=== PATIENT | female | born 1955 | race Caucasian/White ===

== ENCOUNTER 2017-03-29 10:40 | Inpatient (IN) | payer OTHER ==
[~2017-03-29] VITALS: Ht 160 cm; Wt 100.1 kg
[2017-03-29 11:31] LABS: HEMATOCRIT 43.1 % (36.0-46.0); MCH 28.6 PG (29.0-34.0); MCHC 33.4 G/DL (30.0-36.0); MCV 85.7 FL (83-99); MEAN PLAT.VOLUME 10.3 uM^3 (9.5-12.4); PLATELET COUNT 312 K/uL (156-360); RBC DIS.WIDTH-CV 13.6 % (11.8-14.6); RBC DIS.WIDTH-SD 42.6 % (39-53); RED BLOOD COUNT 5.03 M/uL (3.80-5.20); WHITE BLOOD COUNT 17.5 K/uL (4.1-10.2)
[2017-03-29 11:45] LABS: CHLORIDE 101 mEq/L (99-109); POTASSIUM 4.4 mEq/L (3.7-5.4); SODIUM 137 mEq/L (136-147)
[2017-03-29 11:47] LABS: GLUCOSE 166 mg/dL (70-99)
[2017-03-29 11:48] LABS: ANION GAP 14 MEQ/L (2-14)
[2017-03-29 11:51] LABS: GFR ESTIMATE (CALCULATED) > 59 mL/min/
[2017-03-29 11:52] LABS: UREA NITROGEN (BUN) 13 mg/dL (9-23)
[2017-03-29 11:55] LABS: TROP-I INTERPRETATION NEGATIVE; TROPONIN-I < 0.01 ng/mL (0.0-0.30)
[2017-03-29] MEDS ORDERED: POTASSIUM CHLO10 ME4 PO (13:16)
[2017-03-29] MEDS ORDERED: VENTOLIN HFA18 GM IH (13:17)
[2017-03-29] MEDS ORDERED: OMEPRAZOLE20 MG PO (13:17)
[2017-03-29] MEDS ORDERED: MONTELUKAST SOD10 MG PO (13:18)
[2017-03-29] MEDS ORDERED: TORSEMIDE20 MG PO (13:20)
[2017-03-29] MEDS ORDERED: LOSARTAN-HCTZ1 EAC2 PO (13:20)
[2017-03-29] MEDS ORDERED: ADVAIR 500/501 DISK IH (13:20)
[2017-03-29] MEDS ORDERED: PREDNISONE5 MG PO (13:21)
[2017-03-29] MEDS ORDERED: NAPROXEN500 MG PO (13:21)
[2017-03-29] MEDS ORDERED: MULTI VITAMIN1 EACH PO (13:22)
[2017-03-29] MEDS ORDERED: NASACORT10.8 ML BOTH NARES (13:22)
[2017-03-29] MEDS ORDERED: VITAMIN C1000 MG PO (13:26)
[2017-03-29] MEDS ORDERED: POTASSIUM-9999 MG PO (13:26)
[2017-03-29] MEDS ORDERED: CALCIUM600 M1 PO (13:27)
[2017-03-29] MEDS ORDERED: MAGNESIUM OXID500 MG PO (13:27)
[2017-03-29 15:10] VITALS: BP 140/67
[2017-03-29 18:30] VITALS: BP 129/75
[2017-03-29 18:40] LABS: BASE EXCESS -2.3 mEq/L (-3 to +3); BICARBONATE 21.4 mEq/L (22-26); CARBOXY HGB 1.3 % (0-5); METHEMOGLOBIN 1.2 % (0-1.5); PCO2 33 mm Hg (35-45); PO2 73 mm Hg (80-100); pH 7.42 (7.35-7.45)
[2017-03-29 18:41] LABS: COMMENTS - BLOOD GASES A+C+; DEVICE NC; O2 FLOW 2 L/MIN; SITE RR
[2017-03-29 19:55] LABS: TROP-I INTERPRETATION NEGATIVE; TROPONIN-I < 0.01 ng/mL (0.0-0.30)
[2017-03-29 21:58] VITALS: BP 138/74
[2017-03-29 23:09] VITALS: BP 136/64; BP 136/674
[2017-03-30 03:56] VITALS: BP 134/79
[2017-03-30 06:57] LABS: HEMATOCRIT 40.1 % (36.0-46.0); MCH 29.4 PG (29.0-34.0); MCHC 33.9 G/DL (30.0-36.0); MCV 86.8 FL (83-99); MEAN PLAT.VOLUME 10.8 uM^3 (9.5-12.4); PLATELET COUNT 326 K/uL (156-360); RBC DIS.WIDTH-SD 44.6 % (39-53); RED BLOOD COUNT 4.62 M/uL (3.80-5.20); WHITE BLOOD COUNT 19.4 K/uL (4.1-10.2)
[2017-03-30 07:16] LABS: ALKALINE PHOSPHATASE 53 IU/L (3-129); ANION GAP 14 MEQ/L (2-14); CHLORIDE 98 MEQ/L (99-109); GFR ESTIMATE (CALCULATED) > 59 mL/min/; POTASSIUM 4.2 MEQ/L (3.7-5.4); SAMPLE HEMOLYSIS CHECK 0; SAMPLE ICTERIC CHECK 0; SAMPLE LIPEMIA CHECK 0; SODIUM 133 MEQ/L (136-147); TOTAL BILIRUBIN 0.5 MG/DL (0.0-1.0); UREA NITROGEN (BUN) 17 mg/dL (9-23)
[2017-03-30 07:17] LABS: GLUCOSE 335 mg/dL (70-99)
[2017-03-30 07:55] VITALS: BP 117/73
[2017-03-30 11:24] VITALS: BP 136/71
[2017-03-30 15:19] VITALS: BP 133/75
[2017-03-30 19:14] VITALS: BP 136/74
[2017-03-31] VITALS (8 sets, daily range): BP systolic 103–167; BP diastolic 63–83
[2017-03-31 07:01] LABS: HEMATOCRIT 38.9 % (36.0-46.0); MCH 29.3 PG (29.0-34.0); MCHC 33.9 G/DL (30.0-36.0); MCV 86.3 FL (83-99); MEAN PLAT.VOLUME 10.7 uM^3 (9.5-12.4); PLATELET COUNT 378 K/uL (156-360); RBC DIS.WIDTH-CV 13.9 % (11.8-14.6); RBC DIS.WIDTH-SD 43.8 % (39-53); RED BLOOD COUNT 4.51 M/uL (3.80-5.20); WHITE BLOOD COUNT 28.2 K/uL (4.1-10.2)
[2017-03-31 07:25] LABS: ALKALINE PHOSPHATASE 55 IU/L (3-129); ANION GAP 12 MEQ/L (2-14); CHLORIDE 102 MEQ/L (99-109); GFR ESTIMATE (CALCULATED) > 59 mL/min/; GLUCOSE 338 mg/dL (70-99); SAMPLE HEMOLYSIS CHECK 0; SAMPLE ICTERIC CHECK 0; SAMPLE LIPEMIA CHECK 0; SODIUM 138 MEQ/L (136-147)
[2017-03-31 07:28] LABS: TOTAL BILIRUBIN 0.3 MG/DL (0.0-1.0); UREA NITROGEN (BUN) 27 mg/dL (9-23)
[2017-03-31 07:29] LABS: BASOPHIL COUNT 0.1 K/uL (0-0.1); EOSINOPHIL (%) 0 % (0-5); IMMATURE GRANULOCYTE (%) 4.1 % (0.0-0.7); IMMATURE GRANULOCYTE COUNT 1.2 K/uL; INSTRUMENT ABS NEUTROPHIL CT 25.6 K/uL; LYMPHOCYTE COUNT 1.2 K/uL (1.0-2.8); MONOCYTE (%) 3.3 % (3-12); NEUTROPHIL (%) 88.3 % (45-76); NEUTROPHIL COUNT 25.6 K/uL (1.8-6.4)
[2017-03-31 07:32] LABS: TROP-I INTERPRETATION NEGATIVE; TROPONIN-I < 0.01 ng/mL (0.0-0.30)
[2017-04-01 04:02] VITALS: BP 138/74
[2017-04-01 07:10] VITALS: BP 141/79
[2017-04-01 07:18] LABS: EOSINOPHIL (%) 0 % (0-5); HEMATOCRIT 38.8 % (36.0-46.0); IMMATURE GRANULOCYTE (%) 3.9 % (0.0-0.7); IMMATURE GRANULOCYTE COUNT 0.7 K/uL; INSTRUMENT ABS NEUTROPHIL CT 16.1 K/uL; LYMPHOCYTE COUNT 1.4 K/uL (1.0-2.8); MCH 29.2 PG (29.0-34.0); MCHC 33.5 G/DL (30.0-36.0); MCV 87.2 FL (83-99); MEAN PLAT.VOLUME 10.5 uM^3 (9.5-12.4); MONOCYTE (%) 3.8 % (3-12); MONOCYTE COUNT 0.7 K/uL (0-0.8); NEUTROPHIL (%) 84.9 % (45-76); NEUTROPHIL COUNT 16.1 K/uL (1.8-6.4); PLATELET COUNT 360 K/uL (156-360); RBC DIS.WIDTH-CV 14.1 % (11.8-14.6); RBC DIS.WIDTH-SD 45.2 % (39-53); RED BLOOD COUNT 4.45 M/uL (3.80-5.20); WHITE BLOOD COUNT 18.9 K/uL (4.1-10.2)
[2017-04-01 07:43] LABS: ANION GAP 8 MEQ/L (2-14); CHLORIDE 107 MEQ/L (99-109); GFR ESTIMATE (CALCULATED) > 59 mL/min/; GLUCOSE 260 mg/dL (70-99); POTASSIUM 4.3 MEQ/L (3.7-5.4); SAMPLE HEMOLYSIS CHECK 0; SAMPLE ICTERIC CHECK 0; SAMPLE LIPEMIA CHECK 0; SODIUM 140 MEQ/L (136-147); UREA NITROGEN (BUN) 30 mg/dL (9-23)
[2017-04-01 12:10] VITALS: BP 147/72
[2017-04-01 15:47] VITALS: BP 151/83
[2017-04-01 19:06] VITALS: BP 144/78
[2017-04-02 00:26] LABS: POINT-OF-CARE METER ID UU14208750
[2017-04-02 00:41] VITALS: BP 132/88
[2017-04-02 03:45] VITALS: BP 140/80
[2017-04-02 05:42] LABS: POINT-OF-CARE METER ID UU14208750
[2017-04-02 07:16] LABS: HEMATOCRIT 40.1 % (36.0-46.0); MCH 29.3 PG (29.0-34.0); MCHC 33.7 G/DL (30.0-36.0); MCV 87.2 FL (83-99); MEAN PLAT.VOLUME 10.2 uM^3 (9.5-12.4); PLATELET COUNT 434 K/uL (156-360); RBC DIS.WIDTH-CV 14.2 % (11.8-14.6); RBC DIS.WIDTH-SD 45.3 % (39-53); WHITE BLOOD COUNT 23.7 K/uL (4.1-10.2)
[2017-04-02 07:45] LABS: ANION GAP 10 MEQ/L (2-14); CHLORIDE 103 MEQ/L (99-109); GFR ESTIMATE (CALCULATED) > 59 mL/min/; GLUCOSE 226 mg/dL (70-99); SAMPLE HEMOLYSIS CHECK 0; SAMPLE ICTERIC CHECK 0; SAMPLE LIPEMIA CHECK 0; SODIUM 138 MEQ/L (136-147); UREA NITROGEN (BUN) 30 mg/dL (9-23)
[2017-04-02 07:47] LABS: ATYPICAL LYMPHOCYTE 0.9 %; BAND NEUTROPHILS 2.6 % (0-8.0); EOSINOPHIL ABS CT 0; INSTRUMENT ABS NEUTROPHIL CT 17.2 K/uL; MYELOCYTES 1.7 %; SEG.NEUTROPHILS 81.7 % (46.0-76.0)
[2017-04-02 09:04] VITALS: BP 137/89
[2017-04-02 16:14] VITALS: BP 141/92
[2017-04-02 19:38] VITALS: BP 139/83
[2017-04-02 23:48] VITALS: BP 120/56
[2017-04-03 03:43] VITALS: BP 131/78
[2017-04-03 07:03] LABS: HEMATOCRIT 38.1 % (36.0-46.0); MCH 29.4 PG (29.0-34.0); MCHC 34.1 G/DL (30.0-36.0); MCV 86.2 FL (83-99); MEAN PLAT.VOLUME 9.9 uM^3 (9.5-12.4); PLATELET COUNT 353 K/uL (156-360); RBC DIS.WIDTH-CV 14.1 % (11.8-14.6); RBC DIS.WIDTH-SD 44.4 % (39-53); RED BLOOD COUNT 4.42 M/uL (3.80-5.20); WHITE BLOOD COUNT 14.8 K/uL (4.1-10.2)
[2017-04-03 07:26] VITALS: BP 139/87
[2017-04-03 07:28] LABS: ANION GAP 7 MEQ/L (2-14); CHLORIDE 108 MEQ/L (99-109); GFR ESTIMATE (CALCULATED) > 59 mL/min/; GLUCOSE 126 mg/dL (70-99); POTASSIUM 4.2 MEQ/L (3.7-5.4); SAMPLE HEMOLYSIS CHECK 0; SAMPLE ICTERIC CHECK 0; SAMPLE LIPEMIA CHECK 0; SODIUM 140 MEQ/L (136-147); UREA NITROGEN (BUN) 27 mg/dL (9-23)
[2017-04-03 07:44] LABS: ABS NEUTROPHIL COUNT 9.9; BASOPHILS 0.9 %; EOSINOPHIL ABS CT 0; INSTRUMENT ABS NEUTROPHIL CT 8.8 K/uL; LYMPHOCYTES 24.1 % (15.0-45.0); MYELOCYTES 1.8 %; PLAT.SUFFICIENCY ADEQUATE; SMUDGE CELLS 11.6
[2017-04-03] MEDS ORDERED: DOCUSATE SODIU100 MG PO (08:22)
[2017-04-03] MEDS ORDERED: LEVAQUIN500 MG PO (08:24)
[2017-04-03] MEDS ORDERED: SPIRIVA RESPIMAT4 GM IH (08:24)
[2017-04-03] MEDS ORDERED: DUONEB 2.5-0.5 M3 ML AEROSOL ×2 (08:24)
[2017-04-03] MEDS ORDERED: MUCINEX600 MG PO (08:24)
[2017-04-03] MEDS ORDERED: ALPRAZOLAM0.5 MG PO (08:24)
[2017-04-03] MEDS ORDERED: PREDNISONE10 MG PO (08:32)
[2017-04-03] MEDS ORDERED: ADVAIR HFA120 INHALA IH (08:35)
== END 2017-04-03 11:12 | disposition home or self-care (01) | DRG 190 ==
LOC: EME 10:40 → 2EAST 13:20 → EDOF 13:20 → 2EAST 14:25
PROVIDERS: Emergency Medicine; Family Medicine; Internal Medicine; Internal Medicine Cardiovascular Disease
DX: J44.0 Chronic obstructive pulmonary disease with (acute) lower respiratory infection (principal); J18.9 Pneumonia, unspecified organism; J44.1 Chronic obstructive pulmonary disease with (acute) exacerbation; I27.2 Other secondary pulmonary hypertension; I10 Essential (primary) hypertension; J32.9 Chronic sinusitis, unspecified; R09.02 Hypoxemia; K21.9 Gastro-esophageal reflux disease without esophagitis; M19.90 Unspecified osteoarthritis, unspecified site; I49.3 Ventricular premature depolarization; K76.0 Fatty (change of) liver, not elsewhere classified; J98.11 Atelectasis; Z82.49 Family history of ischemic heart disease and other diseases of the circulatory system; Z68.39 Body mass index [BMI] 39.0-39.9, adult
CPT/HCPCS: 36600; 70486; 71020; 71275; 76000; 80048; 80053; 82803; 82948; 83605; 83880; 84484; 85025; 85027; 87040; 87070; 87116; 87205; 87206; 88108; 93005; 93306; 94010; 94640; 94640 76; 94760; 94799; 99202; 99281; 99285; J0456; J0692; J1100; J1650; J1815; J2060; J2250; J2270; J2310; J2930; J3010; J7050; J7512

== ENCOUNTER 2017-04-14 15:59 | Inpatient (IN) | payer OTHER ==
[~2017-04-14] VITALS: Ht 160 cm; Wt 101.6 kg
[~2017-04-14 15:59] MED LIST: ADVAIR 500/501 DISK IH; ADVAIR HFA120 INHALA IH; ALPRAZOLAM0.5 MG PO; CALCIUM600 M1 PO; DOCUSATE SODIU100 MG PO; DUONEB 2.5-0.5 M3 ML AEROSOL; LEVAQUIN500 MG PO; LOSARTAN-HCTZ1 EAC2 PO; MAGNESIUM OXID500 MG PO; MONTELUKAST SOD10 MG PO; MUCINEX600 MG PO; MULTI VITAMIN1 EACH PO; NAPROXEN500 MG PO; NASACORT10.8 ML BOTH NARES; OMEPRAZOLE20 MG PO; POTASSIUM CHLO10 ME4 PO; POTASSIUM-9999 MG PO; PREDNISONE10 MG PO; PREDNISONE5 MG PO; SPIRIVA RESPIMAT4 GM IH; TORSEMIDE20 MG PO; VENTOLIN HFA18 GM IH; VITAMIN C1000 MG PO
[2017-04-14 16:51] LABS: HEMATOCRIT 38.4 % (36.0-46.0); MCH 28.7 PG (29.0-34.0); MCHC 33.1 G/DL (30.0-36.0); MCV 86.7 FL (83-99); MEAN PLAT.VOLUME 9.6 uM^3 (9.5-12.4); PLATELET COUNT 299 K/uL (156-360); RBC DIS.WIDTH-CV 14.8 % (11.8-14.6); RBC DIS.WIDTH-SD 46.9 % (39-53); RED BLOOD COUNT 4.43 M/uL (3.80-5.20); WHITE BLOOD COUNT 10.3 K/uL (4.1-10.2)
[2017-04-14 17:02] LABS: CHLORIDE 104 mEq/L (99-109); MAGNESIUM 1.6 mg/dL (1.3-2.7); POTASSIUM 4.5 mEq/L (3.7-5.4); SODIUM 138 mEq/L (136-147)
[2017-04-14 17:04] LABS: GLUCOSE 204 mg/dL (70-99)
[2017-04-14 17:05] LABS: ANION GAP 9 MEQ/L (2-14)
[2017-04-14 17:06] LABS: TOTAL BILIRUBIN 0.4 mg/dL (0.0-1.0)
[2017-04-14 17:08] LABS: ALKALINE PHOSPHATASE 40 IU/L (3-129); GFR ESTIMATE (CALCULATED) > 59 mL/min/
[2017-04-14 17:09] LABS: UREA NITROGEN (BUN) 22 mg/dL (9-23)
[2017-04-14 17:11] LABS: CREATINE KINASE 51 IU/L (1-294); TOTAL CK 51 IU/L (1-294)
[2017-04-14 17:13] LABS: TROP-I INTERPRETATION NEGATIVE; TROPONIN-I < 0.01 ng/mL (0.0-0.30)
[2017-04-14 17:19] LABS: CK-MB 1.1 ng/mL (0.0-4.9)
[2017-04-14 22:30] VITALS: BP 127/92
[2017-04-14 22:30] LABS: PROTHROMBIN TIME 10.9 SEC (10.2-12.9)
[2017-04-14 22:33] LABS: PTT 26.2 SEC (25-37)
[2017-04-15] MEDS ORDERED: MYCOSTATIN 100,60 ML PO (02:09)
[2017-04-15] MEDS ORDERED: FLONASE16 G1 BOTH NARES (02:10)
[2017-04-15] MEDS ORDERED: DOXYCYCLINE HY100 MG PO (02:10)
[2017-04-15 04:15] VITALS: BP 125/80
[2017-04-15 05:41] LABS: HEMATOCRIT 34.9 % (36.0-46.0); MCH 28.5 PG (29.0-34.0); MCHC 32.4 G/DL (30.0-36.0); MCV 87.9 FL (83-99); MEAN PLAT.VOLUME 10.1 uM^3 (9.5-12.4); PLATELET COUNT 241 K/uL (156-360); RBC DIS.WIDTH-CV 14.8 % (11.8-14.6); RBC DIS.WIDTH-SD 47.7 % (39-53); RED BLOOD COUNT 3.97 M/uL (3.80-5.20)
[2017-04-15 07:34] LABS: ALKALINE PHOSPHATASE 29 IU/L (3-129); ANION GAP 8 MEQ/L (2-14); CHLORIDE 106 MEQ/L (99-109); GFR ESTIMATE (CALCULATED) > 59 mL/min/; GLUCOSE 155 mg/dL (70-99); SAMPLE HEMOLYSIS CHECK 0; SAMPLE ICTERIC CHECK 0; SAMPLE LIPEMIA CHECK 0; SODIUM 141 MEQ/L (136-147); TOTAL BILIRUBIN 0.7 MG/DL (0.0-1.0); UREA NITROGEN (BUN) 18 mg/dL (9-23)
[2017-04-15 08:11] VITALS: BP 127/79
[2017-04-15 10:56] VITALS: BP 117/91
[2017-04-15 14:57] VITALS: BP 109/70
[2017-04-15 20:30] VITALS: BP 113/81
[2017-04-16 00:19] VITALS: BP 100/57
[2017-04-16 04:50] VITALS: BP 120/78
[2017-04-16 08:04] VITALS: BP 120/80
[2017-04-16 09:55] LABS: ANION GAP 9 MEQ/L (2-14); CHLORIDE 104 MEQ/L (99-109); MAGNESIUM 1.5 mg/dl (1.3-2.7); SAMPLE HEMOLYSIS CHECK 0; SAMPLE ICTERIC CHECK 0; SAMPLE LIPEMIA CHECK 0; SODIUM 140 MEQ/L (136-147)
[2017-04-16 10:00] LABS: GFR ESTIMATE (CALCULATED) > 59 mL/min/; GLUCOSE 184 mg/dL (70-99); UREA NITROGEN (BUN) 13 mg/dL (9-23)
[2017-04-16 11:17] VITALS: BP 123/78
[2017-04-16 15:12] VITALS: BP 103/68
[2017-04-16 19:00] VITALS: BP 105/70
[2017-04-16] MEDS ORDERED: ELIQUIS5 MG PO (20:22)
[2017-04-16] MEDS ORDERED: DILTIAZEM 24HR180 MG PO (20:23)
== END 2017-04-16 22:12 | disposition home or self-care (01) | DRG 308 ==
LOC: EME 15:59 → 4EAST 19:50 → EDOF 19:50 → 4EAST 19:50 → ENRESERV 20:15 → 4EAST 22:25
PROVIDERS: Emergency Medicine; Internal Medicine; Nurse Practitioner Family
DX: I48.0 Paroxysmal atrial fibrillation (principal); J18.9 Pneumonia, unspecified organism; I27.2 Other secondary pulmonary hypertension; J44.0 Chronic obstructive pulmonary disease with (acute) lower respiratory infection; J45.909 Unspecified asthma, uncomplicated; I10 Essential (primary) hypertension; M19.90 Unspecified osteoarthritis, unspecified site; E66.9 Obesity, unspecified; Z87.442 Personal history of urinary calculi; Z82.49 Family history of ischemic heart disease and other diseases of the circulatory system; Z68.39 Body mass index [BMI] 39.0-39.9, adult; K21.9 Gastro-esophageal reflux disease without esophagitis; I49.3 Ventricular premature depolarization; Z80.0 Family history of malignant neoplasm of digestive organs
CPT/HCPCS: 71010; 80048; 80053; 82550; 82553; 83735; 83880; 84439; 84443; 84484; 85027; 85610; 85730; 93005; 94640; 94640 76; 99202; 99281; 99285; J7030

== ENCOUNTER 2017-10-28 08:34 | Day surgery (SDC) | payer OTHER ==
[~2017-10-28] VITALS: Ht 157.5 cm; Wt 92.5 kg
[~2017-10-28 08:34] MED LIST changes: +AUGMENTIN500 MG PO; +CALCIUM 600 +1 EA13 PO; +CALCIUM PO; +CARDIZEM CD,CA240 MG PO; +DIGOX125 MCG PO; +DILTIAZEM 24HR180 MG PO; +DILTIAZEM 24HR240 MG PO; +DOXYCYCLINE HY100 MG PO; +DULERA 100 MCG/13 GM IH; +DUONEB 2.5-0.5 M3 ML IPPB; +ELIQUIS5 MG PO; +FLONASE16 G1 BOTH NARES; +GLIPIZIDE ER2.5 MG PO; +GLYXAMBI 25 MG1 EACH PO; +JANUMET 50/51 TABLET PO; +JANUMET PO; +LOSARTAN POTAS100 MG PO; +MAGNESIUM PO; +METFORMIN PO; +MYCOSTATIN 100,60 ML PO; +PHENERGAN-CODE120 ML PO; +POTASSIUM CHLO10 ME3 PO; +TYLENOL REGULA325 MG PO; +[UNRECOGNIZED DRUG - OTHER] PO
== END 2017-10-28 12:13 | disposition home or self-care (01) ==
LOC: CATH 08:34
PROVIDERS: Internal Medicine Cardiovascular Disease
PROC: 5A2204Z Restoration of Cardiac Rhythm, Single (ICD-10-PCS; principal; 2017-10-28)
DX: I48.91 Unspecified atrial fibrillation (principal); I10 Essential (primary) hypertension; J44.9 Chronic obstructive pulmonary disease, unspecified; K21.9 Gastro-esophageal reflux disease without esophagitis; G47.30 Sleep apnea, unspecified; Z88.1 Allergy status to other antibiotic agents; Z88.5 Allergy status to narcotic agent; Z88.8 Allergy status to other drugs, medicaments and biological substances
CPT/HCPCS: 82948; 93005